=== PATIENT | female | born 1975 | race Caucasian/White ===

== ENCOUNTER 2023-05-17 17:32 | Outpatient (CLI) | payer BC | END 2023-05-17 23:59 | disposition critical access hospital (66) | LOC: EMS 17:32 | DX: R10.31 Right lower quadrant pain (principal) | CPT/HCPCS: A0425; A0427 ==

== ENCOUNTER 2023-05-17 18:30 | Inpatient (IN) | payer BC ==
--- NOTE | 2023-05-17 18:34 | ED Physician Documentation ---
PD HPI ABD PAIN - Stated complaint Stated Complaint: ABD PX - History obtained from History obtained from: Patient - Additional information Additional information: She had a colonoscopy on Saturday, 2 days ago. That night she started develop right lower quadrant pain which has been progressive since. Her bowel movements are still watery, she denies fevers or nausea. She had 50 mcg of fentanyl from EMS on the way here which improved the pain from a 10, down to a 3. Declines further pain medication initial eval ration. She did have a single biopsy done of a polyp which was benign. No other history of abdominal issues or abdominal surgeries. PD PAST MEDICAL HISTORY - Present Medications Home Medications: Ambulatory Orders Medication Instructions Recorded Confirmed Dicyclomine HCl 20 mg PO BID 05/17/23 05/17/23 Phentermine HCl 15 mg PO BID 05/17/23 05/17/23 - Allergies Allergies/Adverse Reactions: Allergies Allergy/AdvReac Type Severity Reaction Status Date / Time No Known Drug Allergies Allergy Verified 05/17/23 18:38 PD ED PE NORMAL - Vitals Vital signs reviewed: Yes - General General: Alert and oriented X 3, No acute distress - Abdomen Abdomen: Normal bowel sounds, Soft, Other (Tender in the right lower quadrant without surgical signs) - Neuro Neuro: Alert and oriented X 3, Normal speech Results - Vitals Vitals: Vital Signs - 24 hr 05/17/23 05/17/23 05/17/23 18:35 19:55 21:00 Temperature 37.2 C Heart Rate 113 H 102 H 101 H Respiratory 18 17 16 Rate Blood Pressure 143/85 H 144/67 H 142/82 H O2 Saturation 97 96 96 05/17/23 05/18/23 05/18/23 23:00 00:00 02:00 Temperature Heart Rate 91 85 83 Respiratory 16 16 16 Rate Blood Pressure 106/85 H 106/58 L 126/77 O2 Saturation 95 99 97 05/18/23 05/18/23 05/18/23 04:00 06:00 08:13 Temperature 36.3 C L Heart Rate 80 78 87 Respiratory 16 16 81 H Rate Blood Pressure 130/79 122/68 118/73 O2 Saturation 96 96 97 05/18/23 10:00 Temperature Heart Rate 73 Respiratory 16 Rate Blood Pressure 118/75 O2 Saturation 95 Oxygen O2 Source Room air - Labs Labs: Laboratory Tests 05/17/23 05/17/23 05/17/23 18:52 18:52 22:05 WBC 15.6 H RBC 3.76 L Hgb 10.8 L Hct 32.4 L MCV 86.2 MCH 28.7 MCHC 33.3 RDW 14.8 Plt Count 265 MPV 10.4 Neut # (Auto) 14.4 H Lymph # (Auto) 0.4 L [place] # (Auto) 0.6 Eos # (Auto) 0.0 Baso # (Auto) 0.1 Absolute Nucleated RBC 0.00 Nucleated RBC % 0.0 Sodium 137 Potassium 3.5 Chloride 103 Carbon Dioxide 26 Anion Gap 8.0 BUN 14 Creatinine 0.8 Estimated GFR (MDRD) 76 L Glucose 123 H Calcium 9.0 Total Bilirubin 1.9 H AST 83 H ALT 60 Alkaline Phosphatase 131 H Total Protein 7.1 Albumin 3.6 Globulin 3.5 Albumin/Globulin Ratio 1.0 Urine Color YELLOW Urine Clarity CLEAR Urine pH 5.5 Ur Specific [place] <=1.005 Urine Protein TRACE Urine Glucose (UA) NEGATIVE Urine Ketones 40 H Urine Occult Blood NEGATIVE Urine Nitrite NEGATIVE Urine Bilirubin NEGATIVE Urine Urobilinogen 2 H Ur Leukocyte Esterase NEGATIVE Ur Microscopic Review NOT INDICATED Urine Culture Comments NOT INDICATED Urine HCG, Qual NEGATIVE - Rads (name of study) CT A/P- ruptured appy Relevant Findings:: Final report received, EMP independent interpretation of test PD Medical Decision Making - ED course ED course: 47-year-old woman with right lower quadrant pain starting shortly after colonoscopy 2 days ago. She does not have diffuse pain consistent with a perforation, CT showing ruptured appendicitis and white count elevated with mild anemia. CMP relatively unremarkable. Case discussed by phone with Dr. Atkinson, on-call surgeon at 8:15 PM and he will see the patient and request Zosyn in the interim. Departure - Departure Disposition: [facility] DC/Xfer Clinical Impression: Appendicitis Qualifiers: Appendicitis type: acute appendicitis Acute appendicitis type: with localized peritonitis Appendicitis gangrene presence: without gangrene Appendicitis perforation presence: with perforation Appendicitis abscess presence: without abscess Qualified Code(s): K35.32 - Acute appendicitis with perforation, localized peritonitis, and gangrene, without abscess Condition: Serious
[2023-05-17] MEDS ORDERED: HYDROmorphone 1 MG/ML CARPUJECT IVP STA ×2 (18:42→21:33)
[2023-05-17 18:58] LABS: BASOPHILS # (AUTO) 0.1 10^3/uL (0.0-0.1); BASOPHILS % (AUTO) 0.3 %; EOSINOPHILS % (AUTO) 0.2 %; HCT - HEMATOCRIT 32.4 % (37.0-47.0); HGB - HEMOGLOBIN 10.8 g/dL (12.0-16.0); LYMPHOCYTES # (AUTO) 0.4 10^3/uL (1.5-3.5); LYMPHOCYTES % (AUTO) 2.5 %; MEAN CORPUSCULAR HEMOGLOBIN 28.7 pg (27.0-31.0); MEAN CORPUSCULAR HGB CONC 33.3 g/dL (32.0-36.0); MEAN CORPUSCULAR VOLUME 86.2 fL (81.0-99.0); MEAN PLATELET VOLUME 10.4 fL (7.9-10.8); MONOCYTES # (AUTO) 0.6 10^3/uL (0.0-1.0); MONOCYTES % (AUTO) 3.9 %; NEUTROPHILS # (AUTO) 14.4 10^3/uL (1.5-6.6); NEUTROPHILS % (AUTO) 92.3 %; PLT - PLATELET COUNT 265 10^3/uL (130-450); RED BLOOD COUNT 3.76 10^6/uL (4.20-5.40); RED CELL DISTRIBUTION WIDTH 14.8 % (12.0-15.0); WHITE BLOOD COUNT 15.6 x10^3/uL (4.8-10.8)
[2023-05-17 19:12] LABS: ALBUMIN 3.6 g/dL (3.2-5.5); BILIRUBIN,TOTAL 1.9 mg/dL (0.2-1.0); CREATININE 0.8 mg/dL (0.6-1.3); POTASSIUM 3.5 mmol/L (3.5-4.5); TOTAL PROTEIN 7.1 g/dL (6.4-8.9)
[2023-05-17] MEDS ORDERED: iohexoL-300 100 ML VIAL ONE (19:21)
--- NOTE | 2023-05-17 20:20 | CT Report ---
PROCEDURE: ABDOMEN/PELVIS W INDICATIONS: IV ONLY RLQ PAIN P CSCOPE CONTRAST: 100 ml omni 300 TECHNIQUE: After the administration of IV contrast, 5 mm thick sections acquired from the diaphragms to the symp hysis. 5 mm thick coronal and sagittal reformats were acquired. For radiation dose reduction, the f ollowing was used: automated exposure control, adjustment of mA and/or kV according to patient size. COMPARISON: None. FINDINGS: Image quality: Excellent. Lung bases and heart: Unremarkable. A small hiatal hernia is incidentally noted. Liver: No solid mass. Gallbladder and biliary tree: Within normal limits.c Spleen: No splenomegaly. Pancreas: No pancreatic ductal dilation. Adrenals: No adrenal nodule. Kidneys and ureters: No hydronephrosis. No renal cystic lesion which requires follow up. No solid mas s. Bowel and peritoneum: There is an abnormal appendix seen that measures up to 1.5 cm. There is an appe ndicolith seen, as on series 6 image 18. There is free air and free fluid seen adjacent to the append ix. Moderate surrounding inflammatory change can be seen. No focal abscess is seen. No significant colonic abnormality is seen. No dilated loops of small bowel can be seen. No significant gastric abnormality is seen. Lymph nodes: No central or retroperitoneal adenopathy. Borderline enlarged right lower quadrant lymph nodes are seen. Vessels: No infrarenal aortic aneurysm. PELVIS Reproductive organs: Unremarkable. Bladder: No abnormal wall thickening, accounting for underdistension. Pelvic lymph nodes: No pelvic adenopathy by size criteria. Bones: No aggressive osseous abnormality. Other: No significant ventral or inguinal hernia. IMPRESSION: Ruptured appendicitis, free air or free fluid. Appendicolith is seen. No focal abscess can be seen. Borderline prominent right lower quadrant lymph nodes are seen. Additional findings: Small hiatal hernia Note: Case discussed by telephone with Dr. Jensen at 7:17 PM [place] time on 05/17/2023. Reviewed by: Hugh Willis MD on 05/17/2023 7:19 PM [facility] Approved by: Hugh Willis MD on 05/17/2023 7:19 PM [facility] Station ID: [id number]
[2023-05-17] MEDS ORDERED: PIPERACILLIN/TAZOBACTAM 3.375 GM in SODIUM CHLORIDE 0.9% MINIBAG 100 ML IV STA ×2 (20:23→21:58)
[2023-05-17] MEDS ORDERED: iohexoL-300 100 ML VIAL IVP ONE (20:44)
[2023-05-17] MEDS ORDERED: HYDROmorphone 0.5 MG/0.5 ML SYRINGE IVP PRN (21:50)
[2023-05-17] MEDS ORDERED: SODIUM CHLORIDE FLUSH 0.9% 10 ML SYRINGE IVP PRN (21:50)
[2023-05-17] MEDS: LACTATED RINGERS 1,000 ML IV SCH (22:10)
[2023-05-17 22:27] LABS: BILIRUBIN,URINE NEGATIVE (NEGATIVE); GLUCOSE, URINE (UA) NEGATIVE (NEGATIVE); KETONES,URINE (UA) 40 mg/dL (NEGATIVE); LEUKOCYTE ESTERASE, URINE NEGATIVE (NEGATIVE); NITRITE,URINE NEGATIVE (NEGATIVE); OCCULT BLOOD,URINE NEGATIVE (NEGATIVE); PH,URINE 5.5 PH (5.0-7.5); PROTEIN,URINE TRACE mg/dL (NEGATIVE); UROBILINOGEN,URINE 2 E.U./dL (NORMAL)
[2023-05-17 22:29] LABS: CLARITY,URINE CLEAR (CLEAR); HCG UR QUAL NEGATIVE
--- NOTE | 2023-05-17 23:55 | CONSULTATION NOTE ---
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 Meds/Allgy - Home Medications Home Medications: Ambulatory Orders Medication Instructions Recorded Confirmed Dicyclomine HCl 20 mg PO BID 05/17/23 05/17/23 Phentermine HCl 15 mg PO BID 05/17/23 05/17/23 - Allergies Allergies/Adverse Reactions: Allergies Allergy/AdvReac Type Severity Reaction Status Date / Time No Known Drug Allergies Allergy Verified 05/17/23 18:38 Exam - Vital Signs Vital Signs: Vital Signs x48h Temp Pulse Resp BP Pulse Ox 05/17/23 23:00 91 16 106/85 H 95 05/17/23 21:00 101 H 16 142/82 H 96 05/17/23 19:55 102 H 17 144/67 H 96 05/17/23 18:35 37.2 C 113 H 18 143/85 H 97 Conclusion and Plan - Lab Results Laboratory Results 05/17/23 22:05: Urine Color YELLOW, Urine Clarity CLEAR, Urine pH 5.5, Ur Specific [place] <=1.005, Urine Protein TRACE, Urine Glucose (UA) NEGATIVE, Urine Ketones 40 H, Urine Occult Blood NEGATIVE, Urine Nitrite NEGATIVE, Urine Bilirubin NEGATIVE, Urine Urobilinogen 2 H, Ur Leukocyte Esterase NEGATIVE, Ur Microscopic Review NOT INDICATED, Urine Culture Comments NOT INDICATED, Urine HCG, Qual NEGATIVE 05/17/23 18:52: Sodium 137, Potassium 3.5, Chloride 103, Carbon Dioxide 26, Anion Gap 8.0, BUN 14, Creatinine 0.8, Estimated GFR (MDRD) 76 L, Glucose 123 H, Calcium 9.0, Total Bilirubin 1.9 H, AST 83 H, ALT 60, Alkaline Phosphatase 131 H, Total Protein 7.1, Albumin 3.6, Globulin 3.5, Albumin/Globulin Ratio 1.0 05/17/23 18:52: WBC 15.6 H, RBC 3.76 L, Hgb 10.8 L, Hct 32.4 L, MCV 86.2, MCH 28.7, MCHC 33.3, RDW 14.8, Plt Count 265, MPV 10.4, Neut # (Auto) 14.4 H, Lymph # (Auto) 0.4 L, [place] # (Auto) 0.6, Eos # (Auto) 0.0, Baso # (Auto) 0.1, Absolute Nucleated RBC 0.00, Nucleated RBC % 0.0 - Diagnostic Imaging Results Diagnostic Imaging Results: positive: Prelim report reviewed - Plan Plan: Perorated appendicitis with focal pain in the right lower quadrant. Pain since Saturday. Recommend IV antibiotics with observation with interval appendectomy at a later date.
[2023-05-18] MEDS: SODIUM CHLORIDE FLUSH 0.9% 10 ML SYRINGE IVP SCH ×4 (00:59→23:16)
[2023-05-18] MEDS ORDERED: PIPERACILLIN/TAZOBACTAM 3.375 GM in SODIUM CHLORIDE 0.9% MINIBAG 100 ML IV STA ×2 (02:51→02:52)
[2023-05-18] MEDS: HYDROcod/ACETAM 5/325 MG TABLET PO PRN ×3 (03:20→17:37)
[2023-05-18] MEDS ORDERED: PIPERACILLIN/TAZOBACTAM 3.375 GM in SODIUM CHLORIDE 0.9% MINIBAG 100 ML IV SCH (06:00)
[2023-05-18] MEDS: LACTATED RINGERS 1,000 ML IV SCH (08:06)
[2023-05-18] MEDS ORDERED: DICYCLOMINE HCL 20 MG PO SCH (09:00)
[2023-05-18] MEDS ORDERED: PHENTERMINE HCL 15 MG PO SCH (09:00)
--- NOTE | 2023-05-18 09:27 | ED Physician Documentation ---
ED Addendum - Addendum Addendum: 05/18/23 09:19 She is comfortable right now. Getting IV abx and pain meds, now to oral pain meds this AM. Awaiting hospital bed.
[2023-05-18] MEDS: PIPERACILLIN/TAZOBACTAM 3.375 GM in SODIUM CHLORIDE 0.9% MINIBAG 100 ML IV SCH ×3 (09:44→21:36)
[2023-05-18] MEDS ORDERED: SODIUM CHLORIDE 0.9% 1,000 ML IV STA (14:02)
--- NOTE | 2023-05-18 14:09 | PROVIDER PROGRESS NOTE ---
Subjective - Prog Note Date Prog Note Date: 05/18/23 Prog Note Time: 14:08 - Subjective Pt reports feeling: Improved (Soha is feeling better. Still with some focal RLQ abdominal pain, but she states her pain is much better and she appears better today.) Objective - Vital Signs/Intake & Output Vital Signs: Vital Signs x48h Temp Pulse Pulse Resp BP BP Pulse Ox 05/18/23 11:30 36.6 C 78 16 124/66 98 05/18/23 10:00 73 16 118/75 95 05/18/23 08:13 36.3 C L 87 81 H 118/73 97 Intake & Output: Intake & Output 05/15/23 05/16/23 05/17/23 05/18/23 23:59 23:59 23:59 23:59 Intake Total 100 1433.333 Output Total 1 Balance 100 1432.333 - Lab Results Fish Bones: 05/17/23 18:52 05/17/23 18:52 Other Labs: Lab Results x24hrs 05/17/23 05/17/23 05/17/23 Range/Units 22:05 18:52 18:52 WBC 15.6 H (4.8-10.8) x10^3/uL RBC 3.76 L (4.20-5.40) 10^6/uL Hgb 10.8 L (12.0-16.0) g/dL Hct 32.4 L (37.0-47.0) % MCV 86.2 (81.0-99.0) fL MCH 28.7 (27.0-31.0) pg MCHC 33.3 (32.0-36.0) g/dL RDW 14.8 (12.0-15.0) % Plt Count 265 (130-450) 10^3/uL MPV 10.4 (7.9-10.8) fL Neut # (Auto) 14.4 H (1.5-6.6) 10^3/uL Lymph # (Auto) 0.4 L (1.5-3.5) 10^3/uL [place] # (Auto) 0.6 (0.0-1.0) 10^3/uL Eos # (Auto) 0.0 (0.0-0.7) 10^3/uL Baso # (Auto) 0.1 (0.0-0.1) 10^3/uL Absolute Nucleated RBC 0.00 x10^3/uL Nucleated RBC % 0.0 /100WBC Sodium 137 (135-145) mmol/L Potassium 3.5 (3.5-4.5) mmol/L Chloride 103 (101-111) mmol/L Carbon Dioxide 26 (21-32) mmol/L Anion Gap 8.0 (6-13) BUN 14 (6-20) mg/dL Creatinine 0.8 (0.6-1.3) mg/dL Estimated GFR (MDRD) 76 L (>89) Glucose 123 H (74-104) mg/dL Calcium 9.0 (8.5-10.3) mg/dL Total Bilirubin 1.9 H (0.2-1.0) mg/dL AST 83 H (10-42) IU/L ALT 60 (10-60) IU/L Alkaline Phosphatase 131 H (42-121) IU/L Total Protein 7.1 (6.4-8.9) g/dL Albumin 3.6 (3.2-5.5) g/dL Globulin 3.5 (2.1-4.2) g/dL Albumin/Globulin Ratio 1.0 (1.0-2.2) Urine Color YELLOW Urine Clarity CLEAR (CLEAR) Urine pH 5.5 (5.0-7.5) PH Ur Specific [place] <=1.005 (1.002-1.030) Urine Protein TRACE (NEGATIVE) mg/dL Urine Glucose (UA) NEGATIVE (NEGATIVE) mg/dL Urine Ketones 40 H (NEGATIVE) mg/dL Urine Occult Blood NEGATIVE (NEGATIVE) Urine Nitrite NEGATIVE (NEGATIVE) Urine Bilirubin NEGATIVE (NEGATIVE) Urine Urobilinogen 2 H (NORMAL) E.U./dL Ur Leukocyte Esterase NEGATIVE (NEGATIVE) Ur Microscopic Review NOT INDICATED Urine Culture Comments NOT INDICATED Urine HCG, Qual NEGATIVE Assessment/Plan - Problem List (1) Appendicitis Qualifiers: Appendicitis type: acute appendicitis Acute appendicitis type: with localized peritonitis Appendicitis gangrene presence: without gangrene Appendicitis perforation presence: with perforation Appendicitis abscess presence: without abscess Qualified Code(s): K35.32 - Acute appendicitis with perforation, localized peritonitis, and gangrene, without abscess Assessment and Plan Plan: Continue IV antibiotics. Advance diet as tolerated. Change IVF to NS at 50ml/hr Anticipate discharge tomorrow with oral antibiotics and interval appendectomy at her home in [place] in the future.
[2023-05-19] MEDS: PIPERACILLIN/TAZOBACTAM 3.375 GM in SODIUM CHLORIDE 0.9% MINIBAG 100 ML IV SCH ×2 (05:50→13:20)
[2023-05-19 05:57] LABS: HCT - HEMATOCRIT 30.4 % (37.0-47.0); HGB - HEMOGLOBIN 10.1 g/dL (12.0-16.0); MEAN CORPUSCULAR HEMOGLOBIN 28.5 pg (27.0-31.0); MEAN CORPUSCULAR HGB CONC 33.2 g/dL (32.0-36.0); MEAN CORPUSCULAR VOLUME 85.6 fL (81.0-99.0); MEAN PLATELET VOLUME 10.2 fL (7.9-10.8); RED BLOOD COUNT 3.55 10^6/uL (4.20-5.40); RED CELL DISTRIBUTION WIDTH 14.6 % (12.0-15.0); WHITE BLOOD COUNT 8.5 x10^3/uL (4.8-10.8)
[2023-05-19] MEDS: SODIUM CHLORIDE FLUSH 0.9% 10 ML SYRINGE IVP SCH (10:00)
--- NOTE | 2023-05-19 12:27 | PHARMACY PROGRESS NOTE ---
- Best Possible Medication History Admit Date and Time: 05/18/23 1038 Processed by: Pharmacy Medication History completed: Yes Patient Interview: Completed Secondary Source(s): Pharmacy records As the person ultimately responsible for medication therapy, providers are able to order a medication from an existing home medication list in [facility] via the "Reconcile Routine" prior to Confirmation of that medication by operations support professionals. Such practice is discouraged except when the physician, in their clinical judgment, deems that a medical need exists for a medication without regard to previous use.
--- NOTE | 2023-05-19 15:14 | Discharge Plan ---
Discharge Plan Problem Reviewed?: Yes Disposition: Home, Self Care Condition: Good Prescriptions: Amox/Clav 875/125 [Augmentin 875/125 Tab] 1 tab PO BID #20 tab Diet: Regular Activity Restrictions: No Restrictions Shower Restrictions: No Driving Restrictions: No Weight Bearing: Full Weight Instruction Topics: Appendectomy, Appendicitis Plan of Treatment: Follow up with primary care at her home in [place] for a likely interval appendectomy. I advised her that she may be requested for a second CT abdomen by her new surgeon prior to surgery. Care Goals: Follow up with primary care for surgical referral for interval appendectomy. Assessment: Will have patient follow up with Primary Care Provider for further care. Additional Instructions or Follow Up instructions: None No Smoking: If you smoke, Please STOP! Call for help.
[2023-05-19] MEDS ORDERED: SODIUM CHLORIDE FLUSH 0.9% 10 ML SYRINGE IVP PRN (15:15)
[2023-05-19 15:52] VITALS: O2SAT 100
[2023-05-19 16:16] VITALS: BP 136/90
[2023-05-19] MEDS ORDERED: SODIUM CHLORIDE FLUSH 0.9% 10 ML SYRINGE IVP SCH (17:00)
[2023-05-19] MEDS ORDERED: AMOX/CLAV 875 MG/125 MG TABLET PO SCH (21:00)
== END 2023-05-19 16:15 | disposition home or self-care (01) | DRG 373 ==
LOC: ED 18:30 → MS2 05-18 10:38
PROVIDERS: ADMIT Surgery; ATTEND Surgery
DX: K35.32 Acute appendicitis with perforation, localized peritonitis, and gangrene, without abscess (principal); Z98.890 Other specified postprocedural states
CPT/HCPCS: 36415; 74177; 80053; 81003; 81025; 85025; 85027; 96365; 96375; 96376; 99285; A9270; J1170; J7120; Q9967; 81001; 87086